=== PATIENT | female | born 1940 | race Two or more races ===

== ENCOUNTER 2016-07-22 13:08 | Inpatient (IN) | payer MEDICARE, BC ==
[~2016-07-22] VITALS: Ht 162.6 cm; Wt 43.5 kg
--- NOTE | 2016-07-22 13:18 | NUR ---
ALEXA FROM HOME FOR LEFT HIP PAIN S/P FALL X 3 DAYS DAYS, 11/27, ACHING, SHARP, WORST WHEN MOVING. PATIENT IS AAO3, IN NO ACUTE DISTRESS, RESPIRATION EVEN AND UNLABORED, SKIN IS WARM TO TOUCH AND NON DIPAHORETIC. PATIENT IS AFEBRILE. VSS. WILL CONT TO MONITOR
--- NOTE | 2016-07-22 13:20 | NUR ---
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
[2016-07-22] MEDS ORDERED: MORPHINE SULFATE INJ 4 MG/ML DISP.SYRIN ONE ×2 (13:21→14:35)
[2016-07-22] MEDS ORDERED: ONDANSETRON HCL/PF 4 MG/2 ML VIAL ONE (13:21)
[2016-07-22] MEDS ORDERED: MORPHINE SULFATE INJ 2 MG/ML DISP.SYRIN IV ONE ×2 (13:30→15:00)
[2016-07-22] MEDS ORDERED: ONDANSETRON HCL/PF 4 MG/2 ML VIAL IVP ONE (13:30)
[2016-07-22 13:32] LABS: BASOPHILS # (AUTO) 0.5 /CMM (0.0-0.2); BASOPHILS % (AUTO) 4.1 % (0.0-2.0); EOSINOPHILS % (AUTO) 0.2 % (0.0-6.0); HEMATOCRIT 34 % (33-45); HEMOGLOBIN 11.2 g/dL (11.5-14.8); LYMPHOCYTES # (AUTO) 0.6 /CMM (0.8-4.8); LYMPHOCYTES % (AUTO) 4.7 % (20.0-44.0); MEAN CORPUSCULAR HEMOGLOBIN 31 PG (26.0-33.0); MEAN CORPUSCULAR HGB CONC 33 g/dl (31.0-36.0); MEAN CORPUSCULAR VOLUME 94 fL (82-100); MONOCYTES # (AUTO) 0.7 /CMM (0.1-1.30); MONOCYTES % (AUTO) 5.2 % (2.0-12.0); NEUTROPHILS # (AUTO) 11.1 /CMM (1.8-8.9); NEUTROPHILS % (AUTO) 85.8 % (43.0-81.0); PLATELET COUNT (AUTO) 165 /CMM (150-450); RDW COEFFICIENT OF VARIATION 14.3 (11.5-15.0); RED BLOOD CELL COUNT(AUTO) 3.63 MIL/uL (4.0-5.2); WHITE BLOOD COUNT (AUTO) 12.9 K/uL (4.3-11.0)
--- NOTE | 2016-07-22 13:35 | NUR ---
PT TAKEN FOR XRAY.
--- NOTE | 2016-07-22 13:40 | NUR ---
PT MEDICATED ORDERED.
[2016-07-22 13:43] LABS: CALCIUM, SERUM 8.4 mg/dL (8.5-10.1); CREATININE 0.6 mg/dL (0.6-1.3); POTASSIUM 3.6 mmol/L (3.5-5.1)
[2016-07-22 13:46] LABS: INR 1.1 (0.87-1.13); PROTHROMBIN TIME 11.5 SECS (9.5-12.7)
--- NOTE | 2016-07-22 14:49 | NUR ---
CALLED [facility] TO READ CT AND XRAY
--- NOTE | 2016-07-22 15:06 | NUR ---
[facility] PAGED, POCKET CLOSER
--- NOTE | 2016-07-22 15:08 | NUR ---
CALLED NURSING SUP. FOR MS BED
--- NOTE | 2016-07-22 15:10 | NUR ---
JONO PRADHAN, UBALDO [employer] SCIENCE TEACHER
[2016-07-22] MEDS ORDERED: FENT1PAT10 TD (15:51)
[2016-07-22] MEDS ORDERED: OXYC-34 PO (15:51)
[2016-07-22] MEDS ORDERED: [UNRECOGNIZED DRUG - CODE] PO (15:51)
[2016-07-22] MEDS ORDERED: FOLI1TAB16 PO (15:51)
[2016-07-22] MEDS ORDERED: PRED1TAB PO (15:51)
[2016-07-22] MEDS ORDERED: RANI150T12 PO (15:51)
[2016-07-22] MEDS ORDERED: FLAX100025 PO (15:51)
[2016-07-22] MEDS ORDERED: LORA1TAB82 PO (15:51)
[2016-07-22] MEDS ORDERED: CYAN10009 PO (15:51)
[2016-07-22] MEDS ORDERED: LINA290C PO (15:51)
[2016-07-22] MEDS ORDERED: [UNRECOGNIZED DRUG - CODE] PO (15:51)
[2016-07-22] MEDS ORDERED: CHOL100062 PO (15:51)
[2016-07-22] MEDS ORDERED: DILT240C88 PO (15:51)
[2016-07-22] MEDS ORDERED: METH25VI11 IM (15:51)
[2016-07-22] MEDS ORDERED: NIFE10CA2 PO (15:51)
[2016-07-22] MEDS ORDERED: ESZO2TAB PO (15:51)
[2016-07-22] MEDS ORDERED: FISH1CAP16 PO (15:51)
[2016-07-22] MEDS ORDERED: METO-295 PO (15:51)
[2016-07-22] MEDS ORDERED: CHLO500T3 PO (15:51)
[2016-07-22] MEDS ORDERED: ONDA4TAB8 PO (15:51)
[2016-07-22] MEDS ORDERED: MODA200T30 PO (15:51)
[2016-07-22] MEDS ORDERED: POTA8TAB3 PO (15:51)
[2016-07-22] MEDS ORDERED: TOLT4CAP PO (15:51)
[2016-07-22] MEDS ORDERED: OXYC15TA2 PO (15:51)
--- NOTE | 2016-07-22 16:43 | NUR ---
DR LOVING AT FOR EVAL.
--- NOTE | 2016-07-22 16:54 | NUR ---
REPORT GIVEN TO FRIEDA FREDERICK FOR MS ROOM 327-1
[2016-07-22] MEDS ORDERED: DHA PO SCH (17:00)
[2016-07-22] MEDS ORDERED: LORAZEPAM 1 MG TABLET PO PRN (17:00)
[2016-07-22] MEDS ORDERED: FENTANYL PATCH (100 MCG/HR) 100 MCG/HR PATCH.TD72 TD SCH (17:00)
[2016-07-22] MEDS ORDERED: Medication Not On Formulary EA (Flaxseed Oil 1,000 MG) PO PRN (17:00)
[2016-07-22] MEDS ORDERED: UBIDECARENONE 200 MG PO SCH (17:00)
[2016-07-22] MEDS ORDERED: NIFEdipine (10MG) 10 MG CAPSULE PO PRN (17:00)
[2016-07-22] MEDS ORDERED: EPA PO SCH (17:00)
[2016-07-22] MEDS ORDERED: CHLORZOXAZONE 500 MG TABLET PO PRN (17:00)
[2016-07-22] MEDS ORDERED: FISH OIL PO SCH (17:00)
[2016-07-22] MEDS ORDERED: IV D5/0.45 NACL 1,000 ML IV PRN (17:02)
--- NOTE | 2016-07-22 17:25 | NUR ---
MS RN OPENING RECEIVED PT A/OX4 STATES EXTREME PAIN WITH EVEN THE SLIGHTEST MOVEMENT OF HER BLANKETS. PATIENT STATES 7/10 WITH NO MOVEMENT. PATIENT DENIES SOB, DIFFICULTY BREATHING. ÁNGEL OLEA TAKING VITAL SIGNS FOR PATIENT. PATIENT STATES OXY WILL NOT WORK NOR NORCO AND MORPHINE DID NOT DO ANYTHING IN THE ER. MESSAGE TO DR LOVING TO NOTIFY AND ASK IF WE CAN TRY ANOTHER MEDICATION. PATIENT REFUSING ANY TYPE OF MOVEMENT FOR SKIN CHECK, LINEN CHANGE. EDUCATED PATIENT ON SKIN CARE AND MEDICATIONS SAFETY SHE STATES SHE IS AWARE. PATIENT REFUSING ANY ATTEMPTS ON HECK CATH. PATIENT STATES SHE IS AWAITING ON TRANSFER TO [facility]. CALL LIGHT IN REACH, BED LOWERED AND LOCKED, RAILS UPX3 FOR SAFETY AND BED ALARM ON.
[2016-07-22] MEDS ORDERED: ONDANSETRON HCL/PF 4 MG/2 ML VIAL IVP PRN (17:30)
[2016-07-22] MEDS ORDERED: HYDROCODONE/APAP 5/325MG 1 EACH TABLET PO PRN (17:30)
[2016-07-22] MEDS ORDERED: MAGNESIUM HYDROXIDE 30 ML UDC PO PRN (17:30)
[2016-07-22] MEDS ORDERED: MAG HYDROX/AL HYDROX/SIMETH 30 ML UDC PO PRN (17:30)
[2016-07-22] MEDS ORDERED: ACETAMINOPHEN 325 MG TABLET PO PRN (17:30)
[2016-07-22] MEDS: PANTOPRAZOLE 40 MG TABLET.DR PO SCH (17:30)
[2016-07-22] MEDS ORDERED: Z GUARD REMEDY 2 OZ OINT TP PRN (17:30)
[2016-07-22] MEDS ORDERED: ZOLPIDEM TARTRATE 5 MG TABLET PO PRN (17:30)
[2016-07-22] MEDS ORDERED: DILTIAZEM HCL CD 240 MG PO PRN (17:38)
[2016-07-22] MEDS ORDERED: IV SET PRIMARY PUMP SET 1 EA INFUS.SET MC ONE (17:52)
[2016-07-22] MEDS: CHOLECALCIFEROL 1,000 UNIT TABLET (VIT D3) PO SCH (17:58)
[2016-07-22] MEDS: METOCLOPRAMIDE HCL 10 MG TABLET PO SCH (17:59)
[2016-07-22] MEDS: FOLIC ACID 1 MG TABLET PO SCH (17:59)
[2016-07-22 18:00] VITALS: BP 157/79
[2016-07-22] MEDS ORDERED: TRIAZOLAM 0.125 MG TABLET PO PRN ×2 (18:30→19:30)
[2016-07-22] MEDS ORDERED: MODAFINIL 100 MG TABLET PO PRN (18:30)
[2016-07-22] MEDS ORDERED: POTASSIUM CHLORIDE 8 MEQ PO SCH (18:30)
[2016-07-22] MEDS ORDERED: LINACLOTIDE 290 MCG PO PRN (18:30)
[2016-07-22] MEDS ORDERED: ESZOPICLONE 2 MG PO PRN (18:30)
[2016-07-22] MEDS ORDERED: OXYCODONE HCL PO PRN (18:30)
[2016-07-22] MEDS ORDERED: ACETAMINOPHEN PO PRN (18:30)
[2016-07-22] MEDS ORDERED: TOLTERODINE 2 MG CAP.SR PO PRN (18:30)
[2016-07-22] MEDS ORDERED: oxyCODONE IR immediate release 5 MG CAPSULE PO PRN (18:30)
[2016-07-22] MEDS: CYANOCOBALAMIN 500 MCG TABLET PO SCH (18:33)
--- NOTE | 2016-07-22 18:40 | NUR ---
MS RN NOTES PER DR FABIENNE ESPINO TO UPDATE DNR STATUS PER AND PATIENT IS A NO CODE. THEY WILL TRY AND BRING THE CODE STATUS PAPER. PER MD ESPINO TO ORDER DILAUDID 1MG IV Q3H PRN. KEEP FENTANYL PATCH AT 72 HR, PATIENT PUT ONE ON THIS AM NEXT DUE IS 4/7 AM. RASHEEDA PRETTY AWARE PATIENT AND REFUSING SURGERY AT THIS HOSPITAL. PATIENT IN POSITION OF COMFORT. Addendum: 07/22/16 at 1935 by FRIEDA MORGAN RN CALL LIGHT IN REACH, BED LOWERED AND LOCKED, RAILS UPX3 FOR SAFETY AND WILL ENDORSE CARE TO RN AT THIS TIME. BED ALARM ON AND RAILS UPX3
--- NOTE | 2016-07-22 19:15 | NUR ---
RN NOTES RECEIVED PT AWAKE, ALERT AND ORIENTED X3, STILL COMPLAINING OF PAIN ON HER LEFT HIP 5/10 ESPECIALLY WHEN TOUCHED OR MOVED. DENIES SOB, NOT IN DISTRESS, TOLERATING ROOM AIR. IV ACCESS ON RIGHT FOREARM PATENT AND INTACT WITH ONGOING IVF INFUSING WELL. PT STILL REFUSED HECK CATH TO BE INSERTED AND WANTS SURGERY TO BE DONE AT [facility], AT BEDSIDE MAKING PHONE CALLS. PT REFUSED TO BE MOVED AND TOUCHED AT THIS TIME. WILL CONTINUE TO MONITOR PT.
--- NOTE | 2016-07-22 19:45 | NUR ---
RN NOTES RECEIVED A CALL ZANE FREDERICK AT [facility], PT WAS ACCEPTED AND WILL BE TRANSFERRED THERE, IT WILL NOT HAPPEN TONIGHT AND WILL CALL AGAIN IN THE MORNING AND REQUESTING FACE SHEET TO BE FAXED. RASHEEDA Metcalf OF [facility] AND DR SALAS MADE AWARE. PT AWARE.
[2016-07-22 19:53] VITALS: BP 124/67
[2016-07-22] MEDS: HYDROMORPHONE 1 MG/1 ML DISP.SYRIN IV PRN ×2 (20:17→23:41)
--- NOTE | 2016-07-22 20:17 | NUR ---
RN NOTES PT COMPLAINING OF PAIN ON HER LEFT HIP 12/28. DILAUDID 1 MG GIVEN IV. PT NOTED WET WITH URINE, PT AGREED TO BE CLEANED AND CHANGED WHEN PAIN SUBSIDES. WILL CONTINUE TO MONITOR PT.
--- NOTE | 2016-07-22 20:30 | NUR ---
RN NOTES WHILE CLEANING THE PT AND CHANGING HER DIAPER, IT WAS NOTED THAT PT HAS REDNESS WITH BRUISE, PURPLISH IN COLOR IN SACRAL AREA. PICTURE TAKEN BUT UNABLE TO MEASURE BECAUSE PT IS COMPLAINING OF SEVERE PAIN AND CANNOT TOLERATE SIDE LYING POSITION FOR A PERIOD OF TIME. CLEANSED WITH SOAP AND WATER , Z-GUARD APPLIED AND COVERED WITH MEPILEX. WILL CONTINUE TO MONITOR PT.
--- NOTE | 2016-07-22 20:48 | NUR ---
RN NOTES RECEIVED A CALL FROM KIMBERLY FREDERICK AT [facility], CONFIRMING FACE SHEET WAS RECEIVED AND ASK ABOUT PT CONDITION AND PCP OF THE PT DR NELDA REYNOLDS WAS AWARE.
[2016-07-22] MEDS: FAMOTIDINE (20 MG) 20 MG TABLET PO SCH (21:29)
[2016-07-22 22:00] VITALS: BP 124/67
--- NOTE | 2016-07-22 23:41 | NUR ---
RN NOTES PT COMPLAINS OF PAIN ON HER LEFT HIP 11/27, DILAUDID 1 MG GIVEN IV. WILL CONTINUE TO MONITOR PT.
[2016-07-23] MEDS: HYDROMORPHONE 1 MG/1 ML DISP.SYRIN IV PRN ×5 (06:04→21:14)
--- NOTE | 2016-07-23 06:04 | NUR ---
RN NOTES PT COMPLAINS OF PAIN ON HER LEFT HIP 12/28, DILAUDID 1MG GIVEN IV. WILL CONTINUE TO MONITOR PT.
--- NOTE | 2016-07-23 06:54 | NUR ---
RN NOTES PT ASLEEP, BREATHING REGULAR AND UNLABORED, ON ROOM AIR. NO SOB, NOT IN DISTRESS. VITAL SIGNS STABLE, PT AFEBRILE WITH LATEST TEMP OF 98.8. NO EPISODE OF NAUSEA AND VOMITING. KEPT PAIN AT TOLERABLE LEVEL, PT COMPLAIN OF PAIN WHEN MOVED. TURNED AND REPOSITION WITH GENTLE HANDLING OF THE PT. KEPT PT CLEAN AND DRY. WILL FOLLOW UP WITH [facility] FOR POSSIBLE TRANSFER TODAY. WILL ENDORSE TO MORNING RN FOR CONTINUITY OF CARE.
--- NOTE | 2016-07-23 07:10 | NUR ---
MS/RN AM NOTES RECEIVED PATIENT IN BED, ASLEEP, ON RA, NO DISTRESS NOTED, BREATHING UNLABORED, EVEN. HOB ELEVATED 30 DEGREE. BED IN LOW POSITION, 2 SR UP FOR SAFETY. IV LINE INTACT RFA, NO REDNESS NOTED. PATIENT NOTED COMFORTABLE IN THE BED, WITH CALL LIGHT WITHIN EASY REACH. WILL CONTINUE TO MONITOR ACCORDINGLY.
[2016-07-23 07:17] LABS: EOSINOPHILS % (AUTO) 0.3 % (0.0-6.0); HEMATOCRIT 29 % (33-45); LYMPHOCYTES # (AUTO) 0.4 /CMM (0.8-4.8); LYMPHOCYTES % (AUTO) 2.9 % (20.0-44.0); MEAN CORPUSCULAR HEMOGLOBIN 32 PG (26.0-33.0); MEAN CORPUSCULAR HGB CONC 35 g/dl (31.0-36.0); MEAN CORPUSCULAR VOLUME 92 fL (82-100); MONOCYTES # (AUTO) 0.8 /CMM (0.1-1.30); MONOCYTES % (AUTO) 6.1 % (2.0-12.0); NEUTROPHILS # (AUTO) 11.4 /CMM (1.8-8.9); NEUTROPHILS % (AUTO) 90.7 % (43.0-81.0); PLATELET COUNT (AUTO) 164 /CMM (150-450); RDW COEFFICIENT OF VARIATION 15.3 (11.5-15.0); RED BLOOD CELL COUNT(AUTO) 3.14 MIL/uL (4.0-5.2); WHITE BLOOD COUNT (AUTO) 12.5 K/uL (4.3-11.0)
[2016-07-23 07:24] LABS: ALBUMIN 2.2 g/dL (3.4-5.0); BILIRUBIN,TOTAL 0.7 mg/dL (0.2-1.0); CALCIUM, SERUM 7.9 mg/dL (8.5-10.1); CREATININE 0.5 mg/dL (0.6-1.3); MAGNESIUM 1.4 mg/dL (1.8-2.4); PHOSPHORUS 3.3 mg/dL (2.5-4.9); POTASSIUM 3.5 mmol/L (3.5-5.1); TOTAL PROTEIN, SERUM 7.6 g/dL (6.4-8.2)
[2016-07-23] MEDS: PANTOPRAZOLE 40 MG TABLET.DR PO SCH (07:30)
[2016-07-23 08:00] VITALS: BP 107/62
[2016-07-23] MEDS: CHOLECALCIFEROL 1,000 UNIT TABLET (VIT D3) PO SCH (08:37)
[2016-07-23] MEDS: CYANOCOBALAMIN 500 MCG TABLET PO SCH (08:38)
[2016-07-23] MEDS: METOCLOPRAMIDE HCL 10 MG TABLET PO SCH (08:38)
[2016-07-23] MEDS: FOLIC ACID 1 MG TABLET PO SCH (08:39)
[2016-07-23] MEDS: FAMOTIDINE (20 MG) 20 MG TABLET PO SCH (08:39)
[2016-07-23] MEDS ORDERED: predniSONE 1 MG TABLET PO SCH (09:00)
--- NOTE | 2016-07-23 09:30 | NUR ---
MS/RN NOTES CONTACTED [facility] TO FIND OUT ABOUT TRANSFER PER PATIENT'S REQUEST. INFORMED BY BENJAMÍN FROM TRANSFERRED DEPARTMENT , THAT THEY'RE GOING TO CALL US WHEN INSURANCE CLEARANCE, AND BED AVAILABLE FOR THE ADMISSION. PATIENT, AND CARE TEAM MADE AWARE
[2016-07-23] MEDS ORDERED: MAGNESIUM OXIDE 400 MG TABLET PO ONE (11:30)
--- NOTE | 2016-07-23 13:00 | NUR ---
MS/RN NOTES PATIENT REFUSED TO BE REPOSITIONED. ATTEMPTED TO CLEAN AND REPOSITIONED AFTER 15 MINUTES OF IV DILAUDID ADMINISTRATION, WITH UNSUCCESSFUL PROGRESS, PATIENT STRONGLY REFUSING TO BE REPOSITIONED PROPERLY, AT THE BEDSIDE. EXPLAINED RISKS AND CONSEQUENCES, VERBALIZED UNDERSTANDING. INCONTINENT CARE PROVIDED GENTLY
[2016-07-23 16:00] VITALS: BP 108/61
[2016-07-23] MEDS ORDERED: POTASSIUM CHLORIDE 10 MEQ TABLET.SA PO SCH (17:00)
--- NOTE | 2016-07-23 19:05 | NUR ---
MS/RN CLOSING NOTES PATIENT IS IN THE BED, AWAKE, ALERT, C/O LEFT HIP PAIN, PRN DILAUDID ADMINITERED Addendum: 07/23/16 at 2009 by NATASHA TORRES RN DILAUDID ADMINISTERED ORDERED EVERY 3 HOURS FOR PAIN, TOLERATED WELL, ON RA, NO SOB, NO CHEST PAIN. INCONTINENT CARE PROVIDED ACCORDINGLY, GENTLE. IV LINE INTACT ON RFA INTACT, PATENT. KEPT CLEAN DRY, COMFORTABLE. PATIENT'S AND FAMILY NEEDS ANTICIPATED IN TIMELY MANNER, WITH CALL LIGHT WITHIN EASY REACH ALL THE TIME. ENDORSED TO THE DOCUMENT MANAGEMENT ANALYST NURSE
--- NOTE | 2016-07-23 19:10 | NUR ---
RN NOTES RECEIVED PT AWAKE IN BED WITH DAUGHTER AT BEDSIDE, NO SOB, NOT IN DISTRESS, PAIN AT TOLERABLE LEVEL. PT APPEARS COMFORTABLE IN BED, TOLERATING ROOM AIR. IV ACCESS ON RIGHT FOREARM PATENT AND INTACT. KEPT PT COMFORTABLE AND ATTENDED, WITH CALL LIGHT WITH IN REACH. WILL FOLLOW UP AT [facility] FOR BED AVAILABILITY FOR THE PT. WILL CONTINUE TO MONITOR PT.
--- NOTE | 2016-07-23 19:50 | NUR ---
RN NOTES RECEIVED A CALL FROM JOAQUIN AT [facility], TRANSFER CENTER, SHE SAID THAT THERE IS AVAILABLE BED FOR THE PT. PT WILL BE GOING TO [place] [id number] HOGAN ACCEPTING MD. SHE'S ALSO REQUESTING FOR THE LIST OF MEDS AND CD OF ALL THE IMAGING DONE. PT AND DAUGHTER AT BEDSIDE MADE AWARE.
[2016-07-23 20:00] VITALS: BP 158/81
--- NOTE | 2016-07-23 21:14 | NUR ---
RN NOTES PT COMPLAINS OF LEFT HIP FRACTURE 12/28, DILAUDID 1 MG GIVEN IV. WILL CONTINUE TO MONITOR PT. Addendum: 07/23/16 at 2343 by TONIO ESTEVEZ RN RN NOTES PT COMPLAINS OF LEFT HIP PAIN 12/28. DILAUDID 1MG GIVEN IV. WILL CONTINUE TO MONITOR PT.
--- NOTE | 2016-07-23 21:40 | NUR ---
RN NOTES CALLED [facility] TO TRANSPORT THE PT, SPOKE TO LEIF AND MADE SURE THIS WILL BE COVERED BY THE INSURANCE OF THE PT, REPORT GIVEN. 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
--- NOTE | 2016-07-23 21:50 | NUR ---
RN NOTES PT AWAKE, ALERT AND ORIENTED X3, DENIES SOB AND DISCOMFORT, ON ROOM AIR AND TOLERATED WELL. PT REFUSED SKIN AND BODY ASSESSMENT AND PICTURE TO BE TAKEN BECAUSE OF PAIN WHEN MOVED. IV ACCESS ON RIGHT FOREARM PATENT AND INTACT. VITAL SIGNS STABLE, BP 125/74, HR 97, RR 18, TEMP 97.6 O2 SAT AT ROOM AIR 95%. PT CLEAN AND DRY. DISCHARGE PAPERS AND BELONGINGS FORM SIGNED BY THE , AT BEDSIDE. DISCHARGED PT VIA [facility] IN STABLE CONDITION.
[2016-07-25] MEDS ORDERED: FENTANYL PATCH (100 MCG/HR) 100 MCG/HR PATCH.TD72 TD SCH (17:00)
[2016-07-27] MEDS ORDERED: METHOTREXATE SODIUM/PF 25 MG/ML VIAL IM SCH (19:08)
== END 2016-07-23 21:50 | disposition short-term general hospital (02) | DRG 964 ==
LOC: ER 13:09 → MED 16:46
PROVIDERS: ADMIT Internal Medicine; ATTEND Internal Medicine
DX: S72.002A Fracture of unspecified part of neck of left femur, initial encounter for closed fracture (principal); S32.059A Unspecified fracture of fifth lumbar vertebra, initial encounter for closed fracture; S32.302A Unspecified fracture of left ilium, initial encounter for closed fracture; M33.90 Dermatopolymyositis, unspecified, organ involvement unspecified; E44.1 Mild protein-calorie malnutrition; Z68.1 Body mass index [BMI] 19.9 or less, adult; W18.30XA Fall on same level, unspecified, initial encounter; Y92.009 Unspecified place in unspecified non-institutional (private) residence as the place of occurrence of the external cause; I20.9 Angina pectoris, unspecified; I10 Essential (primary) hypertension; M06.9 Rheumatoid arthritis, unspecified; Z96.642 Presence of left artificial hip joint; Z85.44 Personal history of malignant neoplasm of other female genital organs; M81.0 Age-related osteoporosis without current pathological fracture; Z79.52 Long term (current) use of systemic steroids; Z85.89 Personal history of malignant neoplasm of other organs and systems; M35.00 Sjogren syndrome, unspecified; N39.41 Urge incontinence; Z66 Do not resuscitate; Z75.1 Person awaiting admission to adequate facility elsewhere; Z87.891 Personal history of nicotine dependence; Z91.81 History of falling
CPT/HCPCS: 36415; 72170-TC; 72192-TC; 80048-TC; 80053-TC; 80061-TC; 83735-TC; 84100-TC; 85025-TC; 85730-TC; 87081-TC; A4606; J1170; J2270; J2405; J3490; J7512; J8597; Z7610